=== PATIENT | male | born 1980 ===

== ENCOUNTER 2017-03-02 07:46 | Emergency (ER) | payer SELFPAY ==
--- NOTE | 2017-03-02 09:24 | RAD ---
Indication: Left leg injury. 2 views of the left leg demonstrates fracture of the distal fibula. Soft tissue swelling is noted. The proximal tibia and fibula are unremarkable. IMPRESSION: Fracture of the distal fibula.
--- NOTE | 2017-03-02 09:33 | RAD ---
Indication: Swelling and pain at the LEFT ankle with proximal radiation following rolling injury yesterday. Comparison: No relevant prior exams available on the [facility] PACS for comparison. Technique: AP, mortise, and lateral views LEFT ankle. Report: Oblique fracture through the lateral malleolus terminating inferiorly at the level of the ankle mortise. One cortex width lateral and 2 cortex widths posterior displacement. No additional fracture evident. The ankle mortise remains grossly congruent. Severe soft tissue swelling over the lateral malleolus. IMPRESSION: Yeboah type B fracture pattern at the lateral malleolus.
--- NOTE | 2017-03-02 10:58 | UC ---
Clayton Del Real Gabriel, scribed for Tamela Rothman MD on 03/02/17 at 0847 . Lower Extremity/Ankle HPI - HPI Summary HPI Summary: This patient is a 36 year old M presenting to [facility] s/p fall, yesterday . Pt was wearing boots, fell down a hill. Ankle everted. Able to walk / stand afterward, but painful. No other trauma report. No p/d. - History of Current Complaint Chief Complaint: UCLowerExtremity Stated Complaint: ANKLE INJURY Hx Obtained From: Patient Onset/Duration: Sudden Onset - fell, Still Present Aggravating Factor(s): Standing, Ambulation Able to Bear Weight: Yes - Allergies/Home Medications Allergies/Adverse Reactions: Allergies Allergy/AdvReac Type Severity Reaction Status Date / Time No Known Allergies Allergy Verified 03/02/17 08:01 Home Medications: Home Medications Ibuprofen [Advil] 800 03/02/17 [History] PMH/Surg Hx/FS Hx/Imm Hx Previously Healthy: Yes - Surgical History Surgical History: None - Family History Known Family History: Negative: Cardiac Disease, Diabetes - Social History Occupation: Employed Full-time Alcohol Use: None Substance Use Type: None Smoking Status (MU): Never Smoked Tobacco Review of Systems Constitutional: Negative Skin: Negative Eyes: Negative ENT: Negative Respiratory: Negative Cardiovascular: Negative Gastrointestinal: Negative Genitourinary: Negative Neurovascular: Negative Musculoskeletal: Arthralgia, Edema - left ankle Neurological: Negative Psychological: Negative All Other Systems Reviewed And Are Negative: Yes - Comments Additional Review of Systems Comments: See HPI Physical Exam Triage Information Reviewed: Yes Appearance: Well-Appearing, Other: - NAD Vital Signs: Initial Vital Signs Temp 98.1 F 03/02/17 07:56 Pulse 81 03/02/17 07:56 Resp 18 03/02/17 07:56 BP 154/86 03/02/17 07:56 Pulse Ox 100 03/02/17 07:56 Vital Signs Reviewed: Yes Eye Exam: Normal ENT Exam: Normal Neck exam: Normal Respiratory Exam: Normal Respiratory: Positive: Other: - no dyspnea, no tachypnea, normal respiratory rate Cardiovascular Exam: Normal Cardiovascular: Positive: RRR, Other: - Distal pulses 2+, capillary refill less than 2 seconds Abdomen Description: Positive: Nontender, No Organomegaly, Soft Bowel Sounds: Positive: Present Musculoskeletal Exam: Other - Foot warm to touch. DP / PT 2+. CR > 2 sec. Distal sens LT present. No prox tib fib tenderness. + mTenderness on distal fibular portion. No distal foot pain. + lat mall swelling. Neurological Exam: Normal Psychological Exam: Normal Psychological: Positive: Other: - conversing easily and appropriately Skin Exam: Normal Skin: Positive: Other - no visible or reported rash Diagnostics - Radiology LE XRAY Radiology Interpretation Completed By: Radiologist - Fracture of the distal fibula. physician has reviewed this radiology report and agrees. Ankle XRAY Radiology Interpretation Completed By: Radiologist - Yeboah type B fracture pattern at the lateral malleolus. physician has reviewed this radiology report and agrees Lower Extremity Course/Dx - Course Course Of Treatment: no new problems in CCC. Reviewed xray and report. Reviewed xray report with pt and spouse. 09:45 - orthopedic paged. 10:15 - no answer from Dr. Frances. Orthopedic office called again, they are paging orthopedist. 10:37 - d/w Dr. Frances. F/u within one week. Post splint applied by myself. Post nvi. Reviewed splint precuations. Questions posed answered to the best of my ability. - Differential Dx/Diagnosis Provider Diagnoses: Acute distal Left fibula fracture - Physician Notifications Discussed Patient Care With: Skip Rojas Time Discussed With Above Provider: 10:38 Instructed by Provider To: Other - Discussed patient care. Discharge - Discharge Plan Condition: Stable Disposition: HOME Patient Education Materials: Ankle Fracture (ED) Referrals: Ian Downey MD [Primary Care Provider] - Additional Instructions: Completely non-weight bearing, unless otherwise noted by orthopedic surgeon. Follow up with your primary care physician, per routine. Recommend that you contact primary care physician office to let them know your condition. Follow up with orthopedic surgeon. Seek medical attention for worse or new problems. The documentation as recorded by the Clayton saldaña Gabriel accurately reflects the service I personally performed and the decisions made by me, Tamela Rothman MD.
== END 2017-03-02 11:15 | disposition home or self-care (01) ==
LOC: UCEAST 07:46
DX: S82.61XA Displaced fracture of lateral malleolus of right fibula, initial encounter for closed fracture (principal); W17.81XA Fall down embankment (hill), initial encounter; Y93.9 Activity, unspecified; Y92.9 Unspecified place or not applicable
CPT/HCPCS: 99203; G0463